=== PATIENT | male | born 1980 ===

== ENCOUNTER 2017-05-28 19:42 | Emergency (ER) | payer OTHER ==
[2017-05-28 19:44] VITALS: BMI 30.4
[2017-05-28 19:49] VITALS: TEMP 98.2; O2SAT 97
[2017-05-28] MEDS ORDERED: Sodium Chloride 0.9% 1,000 ML IV STA (19:53)
--- NOTE | 2017-05-28 19:56 | ED PDOC ---
"Arrival/HPI <Maik Sifuentes - Last Filed: 05/28/17 21:05> - General Historian: Patient <Antonio Acevedo - Last Filed: 05/28/17 22:18> - General Chief Complaint: ENT Problem Time Seen by Provider: 05/28/17 19:52 - History of Present Illness Narrative History of Present Illness (Text): 05/28/17 19:53 37 y/o male, no significant pmh, allergic to penicillin, c/o neck discomfort and pain x 1 week. pt. stated that he has no recent illness but admitted that he had dental procedure done about 1 week ago, been experiencicing neck swelling for the past 1 week, no change in speech, no chest pain or shortness of breath, no night sweat, no dizziness, no change in vision, no rash, no other medical or psychological complaints. (Antonio Acevedo) Past Medical History - Provider Review Nursing Documentation Reviewed: Yes - Infectious Disease Hx of Infectious Diseases: None - Psychiatric Hx Substance Use: No - Surgical History Hx Appendectomy: Yes - Anesthesia Hx Anesthesia: Yes Hx Anesthesia Reactions: No Hx Malignant Hyperthermia: No <Antonio Acevedo - Last Filed: 05/28/17 22:18> Family/Social History - Physician Review Nursing Documentation Reviewed: Yes Family/Social History: Unknown Family HX Smoking Status: Heavy Smoker > 10 Cigarettes Daily Hx Alcohol Use: Yes Frequency of alcohol use: Socially Hx Substance Use: No <Antonio Acevedo - Last Filed: 05/28/17 22:18> Allergies/Home Meds <Maik Sifuentes - Last Filed: 05/28/17 21:05> <Antonio Acevedo - Last Filed: 05/28/17 22:18> Allergies/Adverse Reactions: Allergies Penicillins Allergy (Verified 05/28/17 19:45) RASH Review of Systems - Review of Systems Constitutional: absent: Fatigue, Fevers Eyes: absent: Vision Changes ENT: Sore Throat. absent: Hearing Changes Respiratory: absent: SOB, Cough Cardiovascular: absent: Chest Pain Gastrointestinal: absent: Abdominal Pain, Nausea, Vomiting Musculoskeletal: Neck Pain. absent: Joint Swelling, Myalgias Skin: absent: Rash, Pruritis Neurological: absent: Headache, Dizziness <Antonio Acevedo - Last Filed: 05/28/17 22:18> Physical Exam Vital Signs Reviewed: Yes Temperature: Afebrile Blood Pressure: Normal Pulse: Regular Respiratory Rate: Normal Appearance: Positive for: Well-Appearing, Non-Toxic, Comfortable Pain Distress: Moderate Mental Status: Positive for: Alert and Oriented X 3 - Systems Exam Head: Present: Atraumatic, Normocephalic Pupils: Present: PERRL Extroacular Muscles: Present: EOMI Conjunctiva: Present: Normal Ears: Present: NORMAL TM, Normal Canal. No: Erythema Mouth: Present: Moist Mucous Membranes Pharnyx: No: ERYTHEMA, EXUDATE, TONSILS ENLARGED, Uvular Deviation, Soft Palate/ Uvular Edema Nose (External): No: Abrasion, Contusion Nose (Internal): Present: Normal Inspection, No Active Bleeding. No: Rhinorrhea , Septal Hematoma, Epistaxis Neck: Present: Normal Range of Motion, Lymphadenopathy (lt. anterior cervical), Trachea Midline. No: Meningeal Signs, MIDLINE TENDERNESS, Paraspinal Tenderness Respiratory/Chest: Present: Clear to Auscultation, Good Air Exchange. No: Respiratory Distress, Accessory Muscle Use Cardiovascular: Present: Regular Rate and Rhythm, Normal S1, S2. No: Murmurs Abdomen: Present: Normal Bowel Sounds. No: Tenderness, Distention, Peritoneal Signs Back: Present: Normal Inspection Upper Extremity: Present: Normal Inspection. No: Cyanosis, Edema Lower Extremity: Present: Normal Inspection. No: Edema Neurological: Present: GCS=15, Speech Normal, Motor Func Grossly Intact, Gait Normal, Memory Normal Skin: Present: Warm, Dry, Normal Color. No: Rashes Psychiatric: Present: Alert, Oriented x 3, Normal Insight, Normal Concentration <Antonio Acevedo - Last Filed: 05/28/17 22:18> Vital Signs Temp Pulse Resp BP Pulse Ox 05/28/17 19:48 98.2 F 85 18 139/89 97 Medical Decision Making <Maik Sifuentes - Last Filed: 05/28/17 21:05> - Lab Interpretations I have reviewed the lab results: Yes Interpretation: No clinic. lab abnormalty - RAD Interpretation Aquarist: Radiologist <Antonio Acevedo - Last Filed: 05/28/17 22:18> ED Course and Treatment: 05/28/17 19:56 -labs -CT soft tissue neck -IVF/toradol -observe and reassess 05/28/17 22:10 -Labs are non-significant -CT show borderline priminent lymph node, clindamycin ordered. -Pt. feels well, no focal neurological deficits. -Discharge home with clindamycin, motrin, salt water gargling, soft food diet, stay hydrated, follow up with your own pmd and ENT within 2 days, return to the ER for any new or worsening signs or symptoms. (Antonio Acevedo) - Lab Interpretations Lab Results: 05/28/17 20:00 05/28/17 20:00 Lab Results 05/28/17 20:00: Sodium 142, Potassium 4.0, Chloride 107, Carbon Dioxide 22, Anion Gap 17, BUN 17, Creatinine 0.8, Est GFR ( Amer) > 60, Est GFR (Non- Af Amer) > 60, Random Glucose 93, Calcium 9.3, Total Bilirubin 0.5, AST 42, ALT 58 H, Alkaline Phosphatase 89, Total Protein 7.8, Albumin 4.6, Globulin 3.2, Albumin/Globulin Ratio 1.4 05/28/17 20:00: WBC 10.1, RBC 5.45, Hgb 16.0, Hct 44.7, MCV 82.0, MCH 29.4, MCHC 35.8, RDW 13.1, Plt Count 183, MPV 10.4, Gran % 64.4, Lymph % (Auto) 25.3, [place] % (Auto) 6.6 H, Eos % (Auto) 3.5, Baso % (Auto) 0.2, Gran # 6.52 H, Lymph # 2.6, [place] # 0.7 H, Eos # 0.4, Baso # 0.02 - RAD Interpretation Radiology Orders: 05/28/17 19:52 NECK SOFT TISSUE W/CONTRAST [CT] Stat FINDINGS: Nasopharynx: Unremarkable. Oropharynx: Unremarkable. No significant tonsillar enlargement. No peritonsillar abscess. Hypopharynx: There is asymmetry in the left pyriform sinus. It is difficult to evaluate. Larynx: Unremarkable. Normal epiglottis. Trachea: Unremarkable. Retropharyngeal space: Unremarkable. Submandibular/parotid glands: Unremarkable. Glands are normal in size. Thyroid: Unremarkable. No enlarged or calcified nodules. Bones/joints: No acute fracture. Soft tissues: Unremarkable. Vasculature: No acute findings. Lymph nodes: borderline prominent lymph nodes noted in the neck on the left side. Sinuses: [place]AN [place] | Preliminary Radiology Report SUPERVISING DEPUTY (QA) DISCREPANCY? If there is a discrepancy between the preliminary and final interpretation, please notify [facility] via [email or web address]. If you do not have access to our QA portal, call our QA team at [phone] CONFIDENTIALITY STATEMENT This report is intended only for the use of the referring physician, and only in accordance with law, If you received this in error, call [phone] Page 2 of 2 Lung apices: Unremarkable as visualized. IMPRESSION: 1. There is asymmetry in the left pyriform sinus. It is difficult to evaluate. 2. borderline prominent lymph nodes noted in the neck on the left side. Thank you for allowing us to participate in the care of your patient. Dictated and Authenticated by: Cassandra Ashley MD 05/28/2017 10:06 PM Eastern Time ([place] & [place]) (Antonio Acevedo) - Medication Orders Current Medication Orders: Discontinued Medications Sodium Chloride (Sodium Chloride 0.9%) 1,000 mls @ 999 mls/hr IV .Q1H1M STA Stop: 05/28/17 20:53 Last Admin: 05/28/17 20:36 Dose: 999 mls/hr Iohexol (Omnipaque 350 100 Ml) Confirm Administered Dose 350 mg .ROUTE .STK-MED ONE Stop: 05/28/17 20:52 Ketorolac Tromethamine (Toradol) 30 mg IVP STAT STA Stop: 05/28/17 19:53 Last Admin: 05/28/17 20:35 Dose: 30 mg - PA / BADGER DISTILLER OPERATOR / Resident Statement REED has reviewed & agrees with the documentation as recorded. REED has examined the patient and agrees with the treatment plan. <Maik Sifuentes - Last Filed: 05/28/17 21:05> - PA / BADGER DISTILLER OPERATOR / Resident Statement REED has reviewed & agrees with the documentation as recorded. <Antonio Acevedo - Last Filed: 05/28/17 22:18> Disposition/Present on Arrival <Maik Sifuentes - Last Filed: 05/28/17 21:05> - Present on Arrival Any Indicators Present on Arrival: No History of DVT/PE: No History of Uncontrolled Diabetes: No Urinary Catheter: No History of Decub. Ulcer: No History Surgical Site Infection Following: None - Disposition Have Diagnosis and Disposition been Completed?: Yes Disposition Time: 22:15 Patient Plan: Discharge <Antonio Acevedo - Last Filed: 05/28/17 22:18> - Disposition Diagnosis: Lymphadenopathy Disposition: HOME/ ROUTINE Condition: IMPROVED Additional Instructions: -Discharge home with clindamycin, motrin, salt water gargling, soft food diet, stay hydrated, follow up with your own pmd and ENT within 2 days, return to the ER for any new or worsening signs or symptoms. Prescriptions: Clindamycin [Cleocin] 300 mg PO TID #30 cap Ibuprofen [Motrin] 600 mg PO QID PRN #30 tab PRN Reason: Other Referrals: Sylvia Johnston MD [Primary Care Provider] - Follow up with primary August Iraheta DO [Staff Provider] - Follow up with primary Forms: [facility] ([place]se), WORK NOTE"
[2017-05-28 20:41] LABS: BASO # 0.02 K/mm3 (0.0-2.0); BASO % 0.2 % (0.0-3.0); EOS # 0.4 (0.0-0.7); EOS % 3.5 % (1.5-5.0); GRAN # 6.52 (1.4-6.5); GRAN % 64.4 % (50.0-68.0); HEMATOCRIT 44.7 % (42.0-52.0); LYMPH # 2.6 (1.2-3.4); LYMPH % 25.3 % (22.0-35.0); MEAN CORPUSCULAR HEMOGLOBIN 29.4 pg (25.0-35.0); MEAN CORPUSCULAR HGB CONC 35.8 g/dl (31.0-37.0); MEAN PLATELET VOLUME 10.4 fl (7.0-11.0); MONO # 0.7 (0.1-0.6); MONO % 6.6 % (1.0-6.0); RED CELL DISTRIBUTION WIDTH 13.1 % (11.5-14.5); WHITE BLOOD COUNT 10.1 10^3/ul (4.5-11.0)
[2017-05-28 20:46] LABS: ALB/GLOB RATIO 1.4 (1.1-1.8); ALT/SGPT 58 U/L (7-56); AST/SGOT 42 U/L (15-59); BILIRUBIN,TOTAL 0.5 mg/dL (0.2-1.3); BLOOD UREA NITROGEN 17 mg/dL (7-21); CALCIUM 9.3 mg/dL (8.4-10.5); CARBON DIOXIDE 22 mmol/L (21-33); CHLORIDE 107 mmol/L (98-107); GFR AFRICAN-AMERICAN > 60; GLUCOSE,RANDOM 93 mg/dL (70-110); SODIUM 142 mmol/L (132-148); TOTAL PROTEIN 7.8 g/dL (5.8-8.3)
[2017-05-28 20:47] LABS: ALKALINE PHOSPHATASE 89 U/L (38-133)
[2017-05-28] MEDS ORDERED: Iohexol 350 MG/100 ML VIAL ONE (20:51)
[2017-05-28 22:48] VITALS: BP 125/81; PULSE 84; RESP 14
--- NOTE | 2017-05-29 08:01 | CT ---
PROCEDURE: CT NECK WITH CONTRAST HISTORY: lymphenapathy? COMPARISON: None TECHNIQUE: CT of the neck with intravenous contrast. Coronal and sagittal reformats generated. Intravenous contrast dose: 100 mL Omnipaque 350 Radiation dose: DLP 400.51 mGy-cm This CT exam was performed using one or more of the following dose reduction techniques: Automated exposure control, adjustment of the mA and/or kV according to patient size, and/or use of iterative reconstruction technique. FINDINGS: NASOPHARYNX: Within normal limits. SUPRAHYOID NECK: There is no mass or abnormal enhancement in the oropharynx, oral cavity, parapharyngeal space and retropharyngeal space. The left piriform sinus is effaced and difficult to evaluate due to extensive streak artifacts. INFRAHYOID NECK: The larynx, hypopharynx, and supraglottic space with are normal in appearance. Vocal cords intact. MASS: None. GLANDS: Parotid and submandibular glands unremarkable. Normal size thyroid gland, without nodule. LYMPH NODES: Normal. No pathologic lymphadenopathy. CERVICAL SPINE: No fracture or focal lesion. VASCULAR STRUCTURES: Unremarkable. OTHER FINDINGS: None. IMPRESSION: Left piriform sinus is effaced and difficult to evaluate due to extensive streak artifacts. If clinically indicated, endoscopic correlation may be performed. No evidence of acute tonsillitis, peritonsillar abscess or pathologic cervical lymphadenopathy. A preliminary report was provided by [employer].
== END 2017-05-28 23:15 | disposition home or self-care (01) ==
LOC: ED 19:42
DX: R59.1 Generalized enlarged lymph nodes (principal)
CPT/HCPCS: 70491; 80053; 85025; 96365; 96375; 99282; J1885; J7040; Q9967